=== PATIENT | male | born 1975 | race Caucasian/White ===

== ENCOUNTER 2024-02-29 13:48 | Outpatient (AMB) | payer OTHER, SELFPAY ==
--- NOTE | 2024-02-29 13:53 | A.OFFVIS_ITS ---
Vital Signs 02/29/24 14:01 Height 5 ft 9 in Weight 204 lb 9.423 oz BMI 30.2 BP 138/94 H Blood Pressure Location Lt brachial Position Sitting Pulse 64 Pulse Source Pulse Oximeter Pulse Oximetry (%) 98 Oxygen Delivery Method Room Air Intake Visit Reasons: Colonoscopy screening, melena Intake Note: Tripp presents in office today for an initial assessment visit. CC: Pt reports additional sx including slightly softer stool than normal as well as a feeling of not being fully empty / incomplete BM. Pt reports onset of sx approximately 2 mos ago. Pt reports it is idiopathic in nature and has no provocation. Pt reports he has not had an episode for approximately the last week. Pt denies any hx of any colo s.p. Training Professional Required: No Allergies No Known Allergies Allergy (Verified 02/29/24 14:00) HPI HPI Colonoscopy screening, melena: Details: 48 year old? male no significant past medical history here today for pre colonoscopy screening.? Patient was sent to us by his PCP.? This is his first colonoscopy screening.? Patient denies any gastrointestinal symptoms in the past or at present.? However patient does report that about 2 months ago he had bowel movement and significant amount of bleeding after. Patient reports that he had blood after bowel movements frequently till about one week ago. Denies any personal or family history of gastrointestinal disease, colon polyps, or CRC.? Patient never had anesthesia in the past.? Negative for history of sleep apnea.? Denies any history of cardiac, renal, pulmonary, or hepatic disease.? Patient reports that he had blood work done recently about a month ago or so by his PCP. Everything was normal. Patient denies being diagnosed with anemia.? No history of infectious? diseases like hepatitis A, B, C, HIV or tuberculosis.? Patient is not on any anticoagulation [facility] Social History Alcohol intake: current Comment: Occasionally 2-3/week Patient Tobacco Use Status: Former Tobacco user Cigarette Packs Per Day: 1.5 Substance Use Type: Marijuana Review of Systems Const Denies weight gain and Denies weight loss ENT Reports no additional complaints, Denies dysphagia and Denies odynophagia Card Reports no additional complaints Resp Reports no additional complaints GI Denies abdominal pain, Denies belching, Denies melena, Denies bloating, Denies change in bowel habits, Denies dysphagia, Denies excessive flatus, Denies dyspepsia, Denies heartburn, Denies diarrhea, Denies loose stools, Denies nausea, Denies odynophagia and Denies vomiting Reports no additional complaints Musc Reports no additional complaints Neuro Reports no additional complaints Psych Reports no additional complaints Endo Reports no additional complaints Physical Exam Vital Signs: Last Vital Signs Pulse 64 02/29/24 14:01 BP 138/94 H 02/29/24 14:01 Pulse Ox 98 02/29/24 14:01 Oxygen Delivery Method Room Air 02/29/24 14:01 BMI result Body Mass Index 30.2 Const General: healthy appearing and no acute distress Nutritional Appearance: obese Orientation/consciousness: patient oriented x3 Resp Effort & Inspection: normal respiratory effort, able to speak in complete sentences, no tracheal deviation and symmetric chest movement Auscultation: clear to auscultation bilaterally Cardio Rate: regular rate GI Inspection: Yes normal to inspection, No distended and Yes obesity Palpation (GI): Soft to palpation, not firm, nontender and No hepatosplenomegaly present Auscultation: normal bowel sounds General: Yes no CVA tenderness Back/Spine/Pelvis Back: no CVA tenderness Skin General skin exam: elasticity normal, turgor normal and dry skin Neuro General: patient oriented x3 Psych Appearance: grossly normal Mental Status: mental status grossly normal Assessment & Plan Assessment & Plan (1) Screen for colon cancer: Code(s): Z12.11 - Encounter for screening for malignant neoplasm of colon Plan Patient denies any, cardiac or respiratory symptoms.? Patient will increase fluid intake and activity to promote better bowel motility. Increase fiber intake. Patient never had anesthesia in the past. Denies any history of sleep apnea.? No history infectious diseases in the past or present.? Not on any anticoagulation therapy.? No family or personal history of colon cancer or polyps.? Patient denies melena, hematochezia, unintentional weight loss or ribbon like stools.? Discussed at length the pre-procedure,? prep, diet & medications as well as what to expect prior, during and after the procedure.?? Stressed the importance of good bowel prep.? Recommended the use of Vaseline or Calmoseptine OTC & baby wipes with bowel movements to promote comfort.? ?Patient verbalizes understanding and agrees to plan of care.? He was given the opportuni ty to ask questions and all questions answered.? We will see him after the procedure.? Medications: New bisacodyl (Dulcolax (bisacodyl)) take 4 tabs at noon the day before your colonoscopy 20 mg (4 x 5 mg) PO ONCE 4 tabs 0RF 1 day Z12.11 - Encounter for screening for malignant neoplasm of colon polyethylene glycol 3350 (Miralax) As directed by gastroenterology department at [facility] 238 grams PO ONCE 238 grams 0RF Z12.11 - Encounter for screening for malignant neoplasm of colon Coding Level of Care Code New Pt Level 3 (55313) Diagnoses Screen for colon cancer Z12.11 Time Spent (min) 40 Comment 30 minutes spent with patient and additional 10 minutes spent reviewing his records
[2024-02-29 14:01] VITALS: BP 138/94; PULSE 64; O2SAT 98; BMI 30.2
== END 2024-02-29 14:55 | disposition home or self-care (01) ==
PROVIDERS: PCP Internal Medicine; Visit Provider Nurse Practitioner Family
DX: Z01.818 Encounter for other preprocedural examination (principal); Z12.11 Encounter for screening for malignant neoplasm of colon
CPT/HCPCS: S0285

== ENCOUNTER → 2024-02-29 13:48 | Outpatient (BNVA) | payer OTHER, SELFPAY | PROVIDERS: PCP Internal Medicine; Visit Provider Nurse Practitioner Family ==

== ENCOUNTER 2024-07-18 11:47 | Day surgery (SDC) | payer OTHER, SELFPAY ==
[2024-07-16 11:51] VITALS: BMI 30.2
--- NOTE | 2024-07-17 09:38 | HO.ANESPROP2 ---
Documented by User: Pamela Fernandez NP 07/17/24 09:38 HPI - Anesthesia Eval Consult details Narrative: 49yo M for Colonoscopy PMF Social History Social History Alcohol intake: current Alcohol intake frequency: 0-2 drinks per day Comment: Occasionally 2-3/week Patient Tobacco Use Status: Former Tobacco user Cigarette Packs Per Day: 1.5 Use of substances other than those prescribed or required for medical reasons: Yes Substance Use Type: Marijuana Substance Use Frequency: Daily Have you been hit, kicked, punched, or otherwise hurt by someone within the past year? If so, by whom?: No Are you DNR?: No Advance Directives: No Advance Directives Information Provided: Yes Recently lost weight without trying: No Meds Allergies Allergy/AdvReac Type Severity Reaction Status Date / Time No Known Allergies Allergy Verified 02/29/24 14:00 Exam Height,Weight and Vital Signs: Height 5 ft 9 in Weight 92.799 kg Assessment and Plan Assessment Anesthesia Assessment: Chart Reviewed Documented by User: Danna Rolon MD 07/18/24 12:50 [facility] Family History Family history of problems with anesthesia: No Surgical History History of Problems with Anesthesia: No Social History Social History Alcohol intake: current Alcohol intake frequency: 0-2 drinks per day Comment: Occasionally 2-3/week Patient Tobacco Use Status: Former Tobacco user Cigarette Packs Per Day: 1.5 Use of substances other than those prescribed or required for medical reasons: Yes Substance Use Type: Marijuana Substance Use Frequency: Daily Have you been hit, kicked, punched, or otherwise hurt by someone within the past year? If so, by whom?: No Are you DNR?: No Advance Directives: No Advance Directives Information Provided: Yes Recently lost weight without trying: No Meds Allergies Allergy/AdvReac Type Severity Reaction Status Date / Time No Known Allergies Allergy Verified 02/29/24 14:00 Exam Airway Mallampati Class: II TM Dist: >3cm Neck ROM: Full Heart: rrr Lungs: cta Assessment and Plan Assessment Anesthesia Assessment: Anesthesia Plan Discussed Final Anesthetic Review Family History of Problems with Anesthesia: No History of Problems with Anesthesia: No NPO: Yes ASA Class: II (ex smoker) Final Preanesthetic Review: No Changes in Pt Med Stat, Meds/Allgs Chart Reviewed, Consent Obtained/Reviewed and Anes Risks/Benef Reviewed Patient Risk: Low Procedure Risk: Low Anesthetic Plan Anesthetic Plan: MAC: Disposition: Standard PACU
--- NOTE | 2024-07-18 12:19 | MHC.SHP ---
Pre-Procedural Eval Section A - 24 Hr Update-Section A only Date of Service: 07/18/24 Section B - Complete if H&P > 30 days Chief Complaint: screening Present Medications: see Short Stay Collaborative assessment Medical History: No relevant PMH History of Previous Operations: No relevant previous surgery Allergies: Allergies Allergy/AdvReac Type Severity Reaction Status Date / Time No Known Allergies Allergy Verified 02/29/24 14:00 Review of Systems Review of Systems Comment: Ten point ROS negative Exam Exam Comment: Gen appear: No acute distress HEENT: no icterus Chest: No overt resp distress Abd: soft, nontender, nondistended Psych: Stable affect, answering questions appropriately Neuro: A/Ox3 noted to move all extremities spontaneously Ext: no peripheral edema Plan Diagnosis/Plan: Unchanged I have reviewed the history and physical and performed a pertinent physical examination on my patient. No changes have occurred unless specified. Time Spent With Patient Time: Total time managing care of this patient today ____ minutes.
[2024-07-18 12:25] VITALS: BP 143/105; PULSE 80; RESP 16; TEMP 36.8; O2SAT 97; BMI 28.9
[2024-07-18] MEDS: Lactated Ringers 1,000 ML 100 ML IVCONT (12:33)
--- NOTE | 2024-07-18 13:39 | P.OPN-COLO_ITS ---
Colonoscopy Operative Note Operative Note Date of Service: 07/18/24 Narrative: Procedure: Colonoscopy Indication: Screening Endoscopist: Mavis Leyva MD Anesthesia Provider: Britany Guzman CRNA Anesthesia type: MAC Instrument: Olympus [id number]-H190L Consent: Indication, risks vs benefits, and alternatives were discussed with the patient who gave written informed consent to proceed. EKG, pulse, pulse oximetry and blood pressure were monitored throughout the procedure. Please see anesthesia flowsheet. Procedure: The patient was brought to the procedure room and placed in the left lateral decubitus position. IV medications were administered by the anesthesia provider in attendance. A digital rectal exam was performed which was abnormal due to finding of hemorrhoids. A distal attachment cap was affixed to the tip of the colonoscope which was then inserted through the anus and advanced through the colon to the cecum at 75 cm,and terminal ileum. Appendiceal orifice and ileocecal valve were identified. Mucosa was carefully examined under high definition white light as the instrument was slowly withdrawn in a retrograde panoramic fashion. Retroflexion was performed in rectum. The procedure was not difficult. There were no immediate obvious complications. The quality of the prep was BBPS: 2+2+3 = adequate Withdrawal time 9 minutes. Limitations: No limitations. Findings: Mucosa: Normal to cecum and terminal ileum. Protruding lesions: * Large external hemorrhoids with stigmata of recent bleeding. Impression: 1. Normal colon and terminal ileum mucosa 2. External and internal hemorrhoids Recommendations: - intermittent rectal bleeding is likely from hemorrhoids - we recommend high-fiber diet, avoid constipation and straining - Anusol suppository sent to the pharmacy, use daily at bedtime for 10-12 days - if symptoms persist despite the above, can consider referral to surgery - repeat colonoscopy for asymptomatic colorectal cancer screening in 10 years
[2024-07-18 13:41] VITALS: BP 104/66; PULSE 82; RESP 16; TEMP 36.2; O2SAT 96
[2024-07-18 13:55] VITALS: BP 125/91; PULSE 74; RESP 18; TEMP 36.3; O2SAT 97
== END 2024-07-18 14:34 | disposition home or self-care (01) ==
PROVIDERS: PCP Internal Medicine; Visit Provider Internal Medicine
PROC: 0DJD8ZZ Inspection of Lower Intestinal Tract, Via Natural or Artificial Opening Endoscopic (ICD-10-PCS; CPT 45378; principal; 2024-07-18 13:20)
DX: Z12.11 Encounter for screening for malignant neoplasm of colon (principal); K64.8 Other hemorrhoids; K64.4 Residual hemorrhoidal skin tags; F12.90 Cannabis use, unspecified, uncomplicated; Z87.891 Personal history of nicotine dependence
CPT/HCPCS: 45378; J2003; J2704

== ENCOUNTER → 2024-07-18 11:47 | Outpatient (BNV) | payer OTHER, SELFPAY | PROVIDERS: PCP Internal Medicine; Visit Provider Internal Medicine | DX: Z12.11 Encounter for screening for malignant neoplasm of colon (principal); K64.8 Other hemorrhoids | CPT/HCPCS: 45378 ==